=== PATIENT | male | born 1970 | race Caucasian/White ===

== ENCOUNTER → 2021-05-20 00:36 | Outpatient (CLI) | payer OTHER, SELFPAY | PROVIDERS: PCP Nurse Practitioner Family; Visit Provider Orthopaedic Surgery | DX: Z01.812 Encounter for preprocedural laboratory examination (principal); Z20.822 Contact with and (suspected) exposure to COVID-19 | CPT/HCPCS: C9803; U0003; U0005 ==

== ENCOUNTER 2021-05-20 08:32 | Outpatient (CLI) | payer OTHER, SELFPAY ==
--- NOTE | 2021-05-20 08:30 | ECG_ITS ---
Measurements Intervals [place] Rate: 60 P: 23 WI: 155 QRS: 5 QRSD: 101 T: 4 QT: 400 QTc: 402 Interpretive Statements SINUS RHYTHM LOW QRS VOLTAGE IN PRECORDIAL LEADS VOLTAGE CRITERIA FOR LVH BASELINE ARTIFACT- I, II, III, AVR, AVL, AVF BORDERLINE ECG Electronically Signed On 05-20-2021 9:04:37 CDT by Avila Pires D.O.
== END 2021-05-20 08:33 | disposition home or self-care (01) ==
PROVIDERS: PCP Nurse Practitioner Family; Visit Provider Orthopaedic Surgery
DX: I10 Essential (primary) hypertension (principal); Z01.818 Encounter for other preprocedural examination; R94.31 Abnormal electrocardiogram [ECG] [EKG]
CPT/HCPCS: 93005

== ENCOUNTER 2021-05-22 08:00 | Outpatient (CLI) | payer OTHER, SELFPAY ==
[2021-05-22 08:15] LABS: EDCOVIDSCREEN Negative (Negative)
== END 2021-05-22 08:01 | disposition home or self-care (01) ==
LOC: ANHLAB 05-29 10:48
PROVIDERS: PCP Nurse Practitioner Family; Visit Provider Orthopaedic Surgery
DX: Z01.812 Encounter for preprocedural laboratory examination (principal); Z20.822 Contact with and (suspected) exposure to COVID-19
CPT/HCPCS: 36415; 87426; C9803

== ENCOUNTER 2021-05-23 01:14 | Day surgery (SDC) | payer OTHER, SELFPAY ==
[2021-05-10 14:35] VITALS: BMI 28.8
--- NOTE | 2021-05-22 12:36 | WPDANESEPPF ---
Anes - Initial Pre Proc Eval Procedure: Operation Date: 05/23/21 07:30 Proposed Procedures p Right Shoulder Arthroscopy, Rotator Cuff Repair with Subacromial Decompression - Andrew Kingston MD Date/Time: 05/22/21 12:36 Surgeon: Andrew Kingston MD Pre Op Diagnosis: Right Rotator Cuff Tear Patient Data Age: 51 Gender: M Height: 1.73 m Weight: 86.18 kg Allergies Allergy/AdvReac Type Severity Reaction Status Date / Time Penicillins Allergy Unknown Unknown Verified 05/23/21 06:03 Home Medications Medication Instructions Recorded Confirmed Type lisinopril 20 mg tablet 20 mg PO HS 03/22/21 05/23/21 History atorvastatin 10 mg tablet 10 mg PO HS 04/11/21 05/23/21 History Laboratory Tests 05/22/21 07:53 SARS-CoV-2 IgG/IgM Ag?Rapid Negative (Negative) Patient hx anesthesia problems: none Family hx anesthesia problems: none PMFSH Past Medical History Medical History (Updated 05/22/21 @ 12:36 by Jake Hayden MD) Chronic low back pain History of fracture of hand History of fracture of orbit History of neck injury Hypercholesterolemia Hypertension Overweight (BMI 25.0-29.9) Traumatic tear of right rotator cuff Surgical History Surgical History History of cosmetic surgery History of shoulder surgery Family History Family History Father Thyroid disease Other Cancer Grandparent Breast cancer Grandparent Kidney disease Mother Heart disease Social History Social History Tobacco type: smokeless tobacco Smokeless tobacco user: chewing tobacco Second hand tobacco smoke exposure: No Additional smoking assessment comments: chewed for 30 years Alcohol intake: current Alcohol use details: occasionally 2-3 per month Substance use: never Substance use type: does not use Living arrangements: with family Spiritual care concerns: No Anes - Eval Final PreProcedure Day of Procedure 05/22/21 12:36 Patient weight: overweight Heart: regular rate and rhythm Lungs: clear to auscultation and normal air movement Airway: Mallampati scale class II Neurological: alert and oriented Last oral intake: >/= 8 hours ASA classification: II Emergent: no Anesthetic plan: proceed Anesthesia type and monitoring: general LMA and ETT Informed Consent: The patient's anesthetic plan and its attendant risks and benefits were discussed with the patient/family/POA. Questions were solicited and answers provided to the satisfaction of the patient/family/POA.
[2021-05-23] VITALS (7 sets, daily range): BP systolic 108–128; BP diastolic 65–85; PULSE 65–84; RESP 14–18; TEMP 35.7–36; O2SAT 97–100
[2021-05-23] MEDS: LACTATED RINGERS 1,000 ML 30 ML IV CONT ×2 (06:35→11:01)
[2021-05-23] MEDS: KETOROLAC 15 MG/ML VIAL (*BKC) IV PUSH (06:39)
[2021-05-23] MEDS: ACETAMINOPHEN 500 MG TABLET 1000 MG PO (06:40)
--- NOTE | 2021-05-23 06:55 | WPDANESPNB ---
Anes - Peripheral Nerve Block Date/Time: 05/23/21 06:55 I have discussed with the patient/family/POA the placement of a peripheral nerve block for post-operative pain management, including associated risks, benefits, complications, and side effects. Alternative methods of post-operative analgesia were detailed. Questions were solicited and answers provided to the satisfaction of the patient/family/POA. Time-Out: A pre-procedural Time-Out was completed immediately before starting the procedure and confirmed: Patient Identification, Site, Procedure, Patient Position and the Availability of Requisite Equipment. Clinical Indications: Acute post-operative pain management requested by the operative surgeon. Nerve Block Insertion Note Anes-nerve block: supraclavicular right Patient position: supine Skin prep: chlorhexidine Needle: 22 gauge, stimulating, insulated echogenic needle. Needle length: 80 mm Technique: ultrasound (in plane) Injectate: bupivacaine 0.5% with epi 5 mcg/ml (20cc) Observations: tolerated well Complications: none Procedure start time:: 720 Procedure end time:: 725
--- NOTE | 2021-05-23 07:14 | WPDHPUPDATE1 ---
History and Physical Update Update Date/Time: 05/23/21 07:14 History and Physical has been reviewed, including an updated exam of the patient. There are NO changes in the patient's condition. Risks, benefits, and alternatives have been discussed and questions answered. Patient agrees to proceed with procedure.
[2021-05-23] MEDS: ceFAZolin 2 GM/D5W 50 ML 2 GM/50 ML BAG IVPB (07:32)
--- NOTE | 2021-05-23 10:56 | W.PM.PROC2 ---
Procedure Note - Detailed Date of Procedure 05/23/21 Pre-op Diagnosis 1. Right shoulder traumatic rotator cuff tear 2. Biceps tendinosis 3. Impingement syndrome Post-op Diagnosis other (4. Degenerative labral tear) Procedure Performed 1. Arthroscopic right shoulder rotator cuff repair 2. Arthroscopic biceps tenodesis 3. Arthroscopic subacromial decompression 4. Arthroscopic labral debridement Surgeon Andrew Kingston MD Supercharger Repair Supervisor Tiffanie Busby PA-C Anesthesia general and regional Indications Chronic shoulder pain exacerbated by a fall. Acute on chronic tear. Findings Large tear of the supraspinatus with moderate retraction and some delamination posteriorly. Biceps tendinosis with early fraying in the intra-articular portion. Chronic degenerative labral tearing both posterior and anterior. Type 3 acromion with evidence of impingement. Three tunnels created. Nine suture points. Rip stop anteriorly. Biceps tenodesis at the intertubercular groove distally with 2.8 mm anchor and locking loop sutures. Description of Procedure Physician machine operator assistant, Tiffanie Busby PA-C, required for surgery; including patient positioning, draping, arthroscopic camera operation, maintaining instrument position, suture retrieval, wound closure, and dressing and sling placement. Operative detail: Preoperative antibiotics were given. An interscalene block was administered in the preoperative area. The patient was bought brought to the operating room. A general anesthetic was administered. The patient was carefully positioned in the lateral decubitus position. The head and neck were carefully positioned. The non operative extremity was also carefully positioned. The shoulder was prepped and draped in the usual sterile fashion. Examination was performed. Standard posterior and anterior arthroscopic portals were established. Inflow achieved with the arthroscopic pump using saline and epinephrine. The glenohumeral joint was carefully inspected. the labrum was degenerative through most of the posterior and some of the anterior aspect. Gentle debridement was performed. The articular cartilage was quite normal. There was mild synovitis the posterior capsule. The rotator cuff was quite significant and included the anterior and superior cuff. Some delamination posteriorly and partial involvement of the infraspinatus. The subscapularis was normal. The biceps did show some fraying the intra-articular portion and it was released from the superior labrum for later tenodesis. Attention was turned to the subacromial space. A complete bursectomy was performed. The rotator cuff was lightly debrided. The rotator cuff footprint was lightly debrided. The acromion was significantly downsloping with type 3 spur. A modest acromioplasty was performed. The tear configuration was carefully assessed. At this point, 3 tunnels were created at the rotator cuff. The ArthroTunneler technique was utilized. Three sutures were passed through each tunnel. All sutures were then passed through the cuff tissue. The sutures were tied arthroscopically. The posterior tunnel was fall simple sutures 1 in the infraspinatus and 2 in the posterior supra/infra area. The anterior tunnels were used with a rip stop configuration. The repair was quite anatomic without undue tension and nice compression on the footprint. Biceps was identified in the intertubercular groove in tenodesis was performed with the single suture anchor. Double loaded anchor was passed through the tendon and a double locking loop suture passing technique was utilized. The arthroscopic instruments were removed. The wounds were closed with 3-0 Monocryl subcuticular suture and steri strips. There were no complications. A sling was applied and the patient brought to the recovery room. Implants Arthrotunneler. Piton metallic anchor 2.8mm Estimated Blood Loss 20 Drains No Pathology none sent Complications No immediate co
== END 2021-05-23 12:45 | disposition home or self-care (01) ==
PROVIDERS: PCP Nurse Practitioner Family; Visit Provider Orthopaedic Surgery
PROC: (CPT 29805; principal; 2021-05-23 07:30)
DX: S46.011A Strain of muscle(s) and tendon(s) of the rotator cuff of right shoulder, initial encounter (principal); W01.0XXA Fall on same level from slipping, tripping and stumbling without subsequent striking against object, initial encounter; M75.21 Bicipital tendinitis, right shoulder; M75.41 Impingement syndrome of right shoulder; G89.18 Other acute postprocedural pain; I10 Essential (primary) hypertension; E78.00 Pure hypercholesterolemia, unspecified; F17.220 Nicotine dependence, chewing tobacco, uncomplicated
CPT/HCPCS: 29827; 29828; 29826; 64415; 36415; 87426; 93005; A4565; A9270; C1713; C9803; J0690; J1100; J1885; J2250; J2405; J2704; J3010; J7120